=== PATIENT | female | born 1980 | race Caucasian/White ===

== ENCOUNTER 2021-05-02 08:00 | Outpatient (CLI) | payer OTHER | END 2021-05-02 23:59 | disposition home or self-care (01) | LOC: LAB.S 08:00 | PROVIDERS: ATTEND Physician Assistant Medical | DX: R07.0 Pain in throat (principal); Z20.822 Contact with and (suspected) exposure to COVID-19 | CPT/HCPCS: 36415; 84443; 85025; 87070 ==

== ENCOUNTER 2021-05-02 16:34 | Outpatient (CLI) | payer OTHER ==
[2021-05-02 20:27] LABS: BASOPHILS # (AUTO) 0.1 10^3/uL (0.0-0.1); BASOPHILS % (AUTO) 0.5 %; EOSINOPHILS # (AUTO) 0.3 10^3/uL (0.0-0.7); EOSINOPHILS % (AUTO) 2.5 %; HCT - HEMATOCRIT 37.3 % (37.0-47.0); HGB - HEMOGLOBIN 12.1 g/dL (12.0-16.0); LYMPHOCYTES # (AUTO) 1.8 10^3/uL (1.5-3.5); MEAN CORPUSCULAR HGB CONC 32.4 g/dL (32.0-36.0); MEAN CORPUSCULAR VOLUME 89.4 fL (81.0-99.0); MONOCYTES # (AUTO) 0.9 10^3/uL (0.0-1.0); MONOCYTES % (AUTO) 7.5 %; NEUTROPHILS # (AUTO) 8.9 10^3/uL (1.5-6.6); NEUTROPHILS % (AUTO) 74.2 %; PLT - PLATELET COUNT 344 10^3/uL (130-450); RED BLOOD COUNT 4.17 10^6/uL (4.20-5.40); RED CELL DISTRIBUTION WIDTH 13.9 % (12.0-15.0)
[2021-05-02 20:58] LABS: THYROID STIMULATING HORMONE 0.57 uIU/mL (0.34-5.60)
== END 2021-05-02 16:35 | disposition home or self-care (01) ==
LOC: LAB.S 16:34
PROVIDERS: ATTEND Physician Assistant Medical
DX: R07.0 Pain in throat (principal)
CPT/HCPCS: 36415; 84443; 85025; 87070